=== PATIENT | female | born 1985 | race Caucasian/White ===

== ENCOUNTER 2019-05-17 15:44 | Inpatient (IN) | payer OTHER, SELFPAY ==
[2019-05-17] MEDS ORDERED: KETOROLAC 30 MG/ML INJ ONE (15:58)
[2019-05-17] MEDS ORDERED: FENTANYL CITR 100 MCG/2 ML ONE (16:03)
[2019-05-17 16:07] LABS: Absolute Lymphocytes (CBC) 0.6 K/uL (0.7-4.9); Basophils % 0.2 % (0-1.3); Hematocrit 38.5 % (36.0-45.0); Lymphocytes % 6.2 % (15.3-44.8); MPV 8.4 fL (7.6-11.3); RBC Red Blood Cell Count 4.38 M/uL (3.86-4.86)
[2019-05-17 16:18] LABS: Protime INR 1.05
[2019-05-17 16:30] LABS: ALT/SGPT 23 U/L (12-78); AST/SGOT 11 U/L (15-37); Albumin 3.8 g/dL (3.4-5.0); Alkaline Phosphatase 82 U/L (45-117); BUN Blood Urea Nitrogen 7 mg/dL (7-18); Bicarbonate 28 mmol/L (21-32); Bilirubin Direct 0.2 mg/dL (0-0.2); Bilirubin Total 0.8 mg/dL (0.2-1.0); Glucose Level 151 mg/dL (74-106); Magnesium 2.3 mg/dL (1.8-2.4); NT PRO-BNP 46 pg/mL (<125); Potassium 3.5 mmol/L (3.5-5.1); Protein, Total 7.8 g/dL (6.4-8.2); Sodium Level 140 mmol/L (136-145); Troponin (Emerg Dept Use Only) < 0.02 ng/mL (0.0-0.045)
--- NOTE | 2019-05-17 16:35 | RAD REPORT ---
EXAM DESCRIPTION: RAD - Chest Single View - 05/17/2019 4:15 pm CLINICAL HISTORY: Stabbing pain left side of the chest COMPARISON: None. TECHNIQUE: AP portable chest image was obtained 1603 hours . FINDINGS: Left hemidiaphragm elevation is present. Left hemithorax volume reduction is present. Opac ification at the left base is favored to be atelectasis. Finding is relatively minimal. Pneumonia is possible but would not likely give this type of pain presentation. Heart and vasculature are normal. No measurable pleural effusion and no pneumothorax. No acute bony abnormality seen. No acute aortic f indings suspected. IMPRESSION: Minimal stranding in the left base is favored to be atelectasis rather than early pneumo buddy. No pneumothorax or other abnormality to explain stabbing left-side chest pain.
[2019-05-17 17:46] LABS: Blood Morphology Comment NOT SEEN (NOT SEEN); Platelet Estimate ADEQ; Urine White Blood Cell Casts OK
--- NOTE | 2019-05-17 17:48 | RAD REPORT ---
EXAM DESCRIPTION: CT - Chest For Pe Angio - 05/17/2019 5:11 pm CLINICAL HISTORY: Stabbing type pain to the left chest COMPARISON: Chest films same date TECHNIQUE: Dynamically enhanced 3 mm thick images of the chest were obtained during administration o f approximately 150mL Isovue 370 IV contrast. Coronal and oblique MIP reconstruction images were gene rated and reviewed. Exam utilizes a protocol to evaluate the pulmonary arterial tree. All CT scans are performed using dose optimization technique as appropriate and may include automated exposure control or mA/KV adjustment according to patient size. FINDINGS: Pulmonary arterial tree opacification is not optimal but is adequate for diagnostic purpos es. Segmental and subsegmental branch pulmonary emboli are present in the posterior lower left lobe. No e mbolic disease in the left side main pulmonary artery. No left upper lobe pulmonary emboli confirmed. No right-sided pulmonary emboli confirmed. Small emboli could be present. There is suboptimal opacif ication and motion present. The aorta as imaged shows no acute or suspicious finding. No pericardial thickening or effusion. Alveolar opacification is present in the posterior lower left lobe abutting the diaphragm. In the set ting of pulmonary emboli this could be pulmonary hemorrhage. Concurrent pneumonia is possible as well . There is some component of atelectasis present. Minimal left pleural effusion is present. No pneumo thorax or pleural based mass. No mediastinal or hilar suspicious masses. No chest wall masses or abnormal axillary lymphadenopathy. IMPRESSION: Multiple left lower lobe segmental and subsegmental branch pulmonary emboli. Posterior left lung base parenchymal opacification can be pulmonary hemorrhage given the pulmonary em boli present. Pneumonia is possible. Patient has a small left pleural effusion. Additional pulmonary emboli could be present an obscured by the motion and suboptimal pulmonary arter ial tree opacification. Any additional emboli would not alter treatment options.
[2019-05-17] MEDS ORDERED: ENOXAPARIN 80 MG/0.8 ML SQ ONE (18:20)
--- NOTE | 2019-05-17 18:47 | ER ---
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 Transition of care: patient was not received from another setting of care. Onset of symptoms was May 17, 2019. Risk Assessment: Do you want to hurt yourself or someone else? Patient reports no desire to harm self or others. Initial Sepsis Screen: Does the patient meet any 2 criteria? No. Patient's initial sepsis screen is negative. Does the patient have a suspected source of infection? No. Patient's initial sepsis screen is negative. Care prior to arrival: None. 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 - Social history:: Smoking status: Patient uses tobacco products, smokes one-half pack cigarettes per day. - Ebola Screening: : No symptoms or risks identified at this time. Screenin:49 Abuse screen: Denies threats or abuse. Nutritional screening: No deficits noted. la1 Tuberculosis screening: No symptoms or risk factors identified. Fall Risk None identified. Assessment: 15:48 General: Appears uncomfortable, Behavior is cooperative, agitated. Pain: Complains of la1 pain in chest under left breast Pain does not radiate. Quality of pain is described as sharp, Pain began 2-3 days ago. Neuro: Level of Consciousness is awake, alert, obeys commands, Oriented to person, place, time, situation. Cardiovascular: Heart tones S1 S2 present Capillary refill < 3 seconds Patient's skin is warm and dry. Rhythm is sinus tachycardia. Respiratory: Airway is patent Respiratory effort is even, unlabored, Respiratory pattern is regular, symmetrical, Breath sounds are clear bilaterally. GI: No signs and/or symptoms were reported involving the gastrointestinal system. : No signs and/or symptoms were reported regarding the genitourinary system. 16:51 Reassessment: Patient appears in no apparent distress at this time. No changes from la1 previously documented assessment. Patient and/or family updated on plan of care and expected duration. Pain level reassessed. Patient is alert, oriented x 3, equal unlabored respirations, skin warm/dry/pink. 17:44 Reassessment: Patient appears in no apparent distress at this time. No changes from la1 previously documented assessment. Patient and/or family updated on plan of care and expected duration. Pain level reassessed. Patient is alert, oriented x 3, equal unlabored respirations, skin warm/dry/pink. 18:07 Reassessment: Patient appears in no apparent distress at this time. No changes from la1 previously documented assessment. Patient and/or family updated on plan of care and expected duration. Pain level reassessed. Patient is alert, oriented x 3, equal unlabored respirations, skin warm/dry/pink. Vital Signs: 15:46 BP 121 / 64; Pulse 97; Resp 20; Temp 99.8; Pulse Ox 98% on R/A; Weight 83.91 kg; Height la1 5 ft. 1 in. (154.94 cm); 17:43 BP 115 / 64; Pulse 85; Resp 16; Pulse Ox 98% on R/A; la1 18:07 BP 112 / 66; Pulse 88; Resp 18; Pulse Ox 98% on R/A; la1 18:42 BP 117 / 75; Pulse 85; Resp 16; Pulse Ox 98% on R/A; la1 20:48 BP 116 / 74; Pulse 86; Resp 16; Pulse Ox 98% on R/A; la1 21:33 BP 114 / 65; Pulse 85; Resp 16; Temp 99.8; Pulse Ox 98% on R/A; la1 15:46 Body Mass Index 34.96 (83.91 kg, 154.94 cm) la1 ED Course: 15:45 Patient arrived in ED. la1 15:45 German Swenson PA is PHCP. cp 15:45 Fausto Clark MD is Attending Physician. cp 15:47 Arm band placed on left wrist. la1 15:48 Triage completed. la1 15:49 Bed in low position. Call light in reach. Side rails up X 1. chain offbearer on. Pulse la1 ox on. NIBP on. 15:55 EKG done, by medical equipment repair technician. reviewed by German GUEVARA. sm3 16:08 Ken Agrawal, RN is Primary Nurse. la1 16:15 XRAY Chest (1 view) In Process Unspecified. EDMS 16:50 No provider procedures requiring assistance completed. Inserted saline lock: 22 gauge la1 in right antecubital area, using aseptic technique. Blood collected. Patient maintains SpO2 saturation greater than 95% on room air. 17:[address] via stretcher. nj 17:12 CT Chest For PE Angio In Process Unspecified. EDMS 18:35 US Extremity Venous W Compression Juanpablo In Process Unspecified. EDMS 18:45 Kriss Terrell MD is Hospitalizing Provider. cp 22:14 Patient admitted, IV remains in place. la1 Administered Medications: 16:09 Drug: fentaNYL (PF) 25 mcg Route: IVP; Site: right antecubital; la1 16:56 Follow up: Response: No adverse reaction; Pain is decreased la1 17:51 CANCELLED (Physician Discretion): TORadol 30 mg IVP once cp 17:55 Not Given (Physician Discretion): Lovenox 1 mg/kg Sub-Q once cp 18:17 Drug: fentaNYL (PF) 25 mcg Route: IVP; Site: right antecubital; la1 21:35 Follow up: Response: No adverse reaction; Pain is decreased la1 18:41 Drug: Lovenox 1 mg/kg Route: Sub-Q; Site: left lower abdomen; la1 21:35 Follow up: Response: No adverse reaction la1 20:46 Drug: morphine 2 mg Route: IVP; Site: right antecubital; la1 21:34 Follow up: Response: No adverse reaction; Pain is decreased la1 Outcome: 18:46 Decision to Hospitalize by Provider. cp 22:14 Admitted to Tele accompanied by tech, via stretcher. la1 22:14 Condition: stable 22:14 Instructed on the need for admit. 22:14 Patient left the ED. la1 Signatures: Dispatcher [employer] EDMS Ken Agrawal RN RN la1 German Swenson PA PA cp Jordan, Nathan nj Montes, Shakira 3
--- NOTE | 2019-05-17 18:47 | EDPHYS ---
Physician Documentation [facility] Name: Sharri Humphries Age: 33 yrs Sex: Female : 1985 Arrival Date: 05/17/2019 Time: 15:45 Bed 27 Private MD: ED Physician Fausto Clark HPI: 05/17 16:00 This 33 yrs old Female presents to ER via EMS with complaints of Chest Wall cp Pain. 16:00 The patient or guardian reports chest pain that is located primarily in the anterior cp chest wall, left. 16:00 Onset: The symptoms/episode began/occurred 2-3 days ago. cp 16:00 The pain radiates to left back. Associated signs and symptoms: Pertinent positives: cp shortness of breath, Pertinent negatives: abdominal pain, constipation, diarrhea, dysuria, fever, vomiting, wheezing. Modifying factors: the patient symptoms are aggravated by deep inspiration. Associated signs and symptoms: Pertinent negatives: abdominal pain, cough, diaphoresis, lower extremity pain, lower extremity swelling, syncope, fever. The chest pain is described as sharp, stabbing. Duration: The patient or guardian reports multiple episodes, that wax and wane. 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 - Social history:: Smoking status: Patient uses tobacco products, smokes one-half pack cigarettes per day. - Ebola Screening: : No symptoms or risks identified at this time. ROS: 16:05 Constitutional: Negative for body aches, chills, fever, poor PO intake. cp 16:05 Eyes: Negative for injury, pain, redness, and discharge. cp 16:05 ENT: Negative for drainage from ear(s), ear pain, sore throat, difficulty swallowing, difficulty handling secretions. 16:05 Cardiovascular: Positive for chest pain, Negative for edema, palpitations. 16:05 Respiratory: Positive for shortness of breath, Negative for cough, hemoptysis, wheezing. 16:05 Abdomen/GI: Negative for abdominal pain, nausea, vomiting, and diarrhea, black/tarry stool, rectal bleeding. 16:05 Back: Positive for radiated pain, Negative for injury or acute deformity, decreased range of motion. 16:05 : Negative for urinary symptoms. 16:05 Skin: Negative for cellulitis, rash. 16:05 Neuro: Negative for altered mental status, headache, weakness. 16:05 All other systems are negative. Exam: 15:55 ECG was reviewed by the Attending Physician. cp 16:15 Constitutional: The patient appears alert, awake, non-diaphoretic, non-toxic, well cp developed, well nourished, in obvious pain, uncomfortable. 16:15 Head/Face: Normocephalic, atraumatic. Eyes: Pupils equal round and reactive to light, cp extra-ocular motions intact. Lids and lashes normal. Conjunctiva and sclera are non-icteric and not injected. Cornea within normal limits. Periorbital areas with no swelling, redness, or edema. ENT: Nares patent. No nasal discharge, no septal abnormalities noted. Tympanic membranes are normal and external auditory canals are clear. Oropharynx with no redness, swelling, or masses, exudates, or evidence of obstruction, uvula midline. Mucous membranes moist. Neck: Trachea midline, no thyromegaly or masses palpated, and no cervical lymphadenopathy. Supple, full range of motion without nuchal rigidity, or vertebral point tenderness. No Meningismus. Chest/axilla: Normal chest wall appearance and motion. Nontender with no deformity. No lesions are appreciated. 16:15 Cardiovascular: Rate: normal, Rhythm: regular, Heart sounds: murmur, not appreciated, Edema: is not appreciated, JVD: is not appreciated. 16:15 Respiratory: the patient does not display signs of respiratory distress, Respirations: normal, no use of accessory muscles, no retractions, no splinting, no tachypnea, labored breathing, is not present, Breath sounds: are clear throughout. 16:15 Abdomen/GI: Inspection: abdomen appears normal, Palpation: abdomen is soft and non-tender, in all quadrants. 16:15 Back: pain, is absent, ROM is normal. 16:15 Skin: cellulitis, is not appreciated, no rash present. 16:15 Neuro: Orientation: to person, place \T\ time. Mentation: is normal, Cerebellar function: is grossly normal, Motor: moves all fours, strength is normal, Sensation: is normal. Vital Signs: 15:46 BP 121 / 64; Pulse 97; Resp 20; Temp 99.8; Pulse Ox 98% on R/A; Weight 83.91 kg; Height la1 5 ft. 1 in. (154.94 cm); 17:43 BP 115 / 64; Pulse 85; Resp 16; Pulse Ox 98% on R/A; la1 18:07 BP 112 / 66; Pulse 88; Resp 18; Pulse Ox 98% on R/A; la1 18:42 BP 117 / 75; Pulse 85; Resp 16; Pulse Ox 98% on R/A; la1 20:48 BP 116 / 74; Pulse 86; Resp 16; Pulse Ox 98% on R/A; la1 21:33 BP 114 / 65; Pulse 85; Resp 16; Temp 99.8; Pulse Ox 98% on R/A; la1 15:46 Body Mass Index 34.96 (83.91 kg, 154.94 cm) la1 MDM: 15:52 Patient medically screened. cp 16:00 Differential diagnosis: acute pericarditis, anxiety, chest wall pain, pneumonia, cp pneumothorax, pulmonary embolus. 18:00 Data reviewed: vital signs, nurses notes, lab test result(s), EKG, radiologic studies, cp CT scan, plain films. 18:00 Test interpretation: by ED physician or midlevel provider: plain radiologic studies. cp Response to treatment: the patient's symptoms have markedly improved after treatment, and as a result, I will admit patient. 18:17 Physician consultation: Bandar Marie MD was called at 18:17, was contacted at 18:17, cp regarding admission, to the telemetry unit. patient's condition, would like admission per Dr. Kriss Terrell MD would like medications started, Lovenox 1mg/kg bid. 05/17 15:54 Order name: Basic Metabolic Panel; Complete Time: 16:32 cp 05/17 15:54 Order name: CBC with Diff; Complete Time: 17:50 cp 05/17 15:54 Order name: LFT's; Complete Time: 16:32 cp 05/17 15:54 Order name: Magnesium; Complete Time: 16:32 cp 05/17 15:54 Order name: NT PRO-BNP; Complete Time: 16:32 cp 05/17 15:54 Order name: PT-INR; Complete Time: 16:32 cp 05/17 15:54 Order name: Troponin (emerg Dept Use Only); Complete Time: 16:32 cp 05/17 15:54 Order name: D-Dimer; Complete Time: 16:32 cp 05/17 17:46 Order name: CBC Smear Scan; Complete Time: 17:50 EDMS 05/17 20:33 Order name: Vitamin B12 Level EDMS 05/17 20:33 Order name: Folic Acid, (Folate) EDMS 05/17 20:33 Order name: Comprehensive Metabolic Panel EDMS 05/17 20:34 Order name: Comprehensive Metabolic Panel EDMS 05/17 20:34 Order name: Troponin I EDMS 05/17 15:54 Order name: XRAY Chest (1 view); Complete Time: 17:50 cp 05/17 16:32 Order name: CT Chest For PE Angio; Complete Time: 17:50 cp 05/17 20:34 Order name: Troponin I EDMS 05/17 20:35 Order name: Anti-Thrombin III Activity EDMS 05/17 20:35 Order name: Cardiolipin Antibodies G,M EDMS 05/17 20:35 Order name: C-ANCA Anti-Proteinase 3 EDMS 05/17 20:35 Order name: Factor V Leiden Mutation EDMS 05/17 20:35 Order name: Homocysteine EDMS 05/17 20:35 Order name: Miscellaneous Test Lab EDMS 05/17 20:35 Order name: P-ANCA Anti-Myeloperoxidase Ab EDMS 05/17 20:35 Order name: PROTHROMBIN GENE ANALYSIS (F2) EDMS 05/17 20:35 Order name: Protein C Antigen EDMS 05/17 20:35 Order name: Protein S (Total EDMS 05/17 20:35 Order name: RPR EDMS 05/17 20:35 Order name: Protein Electo w/M Otilio Serum EDMS 05/17 20:35 Order name: Vitamin D, 25 ([place]), TOTAL EDMS 05/17 15:54 Order name: EKG; Complete Time: 15:55 cp 05/17 15:54 Order name: Cardiac monitoring; Complete Time: 16:12 cp 05/17 15:54 Order name: EKG - Nurse/Tech; Complete Time: 16:12 cp 05/17 15:54 Order name: IV Saline Lock; Complete Time: 16:12 cp 05/17 15:54 Order name: Labs collected and sent; Complete Time: 16:09 cp 05/17 15:54 Order name: O2 Per Protocol; Complete Time: 16:09 cp 05/17 15:54 Order name: O2 Sat Monitoring; Complete Time: 16:10 cp 05/17 18:05 Order name: US Extremity Venous W Compression Juanpablo la1 05/17 18:06 Order name: Misc. Order: bed rest; Complete Time: 18:08 cp 05/17 20:35 Order name: CONS Pharmacy Consult EDMS 05/17 20:35 Order name: CONS Physician Consult EDMS 05/17 20:35 Order name: EKG Electrocardiogram EDMS 05/17 20:35 Order name: EKG Electrocardiogram EDMS EC:55 Rate is 93 beats/min. Rhythm is regular. FL interval is normal. QRS interval is normal. cp QT interval is normal. Interpreted by me. Reviewed by me. Administered Medications: 16:09 Drug: fentaNYL (PF) 25 mcg Route: IVP; Site: right antecubital; la1 16:56 Follow up: Response: No adverse reaction; Pain is decreased la1 17:51 CANCELLED (Physician Discretion): TORadol 30 mg IVP once cp 17:55 Not Given (Physician Discretion): Lovenox 1 mg/kg Sub-Q once cp 18:17 Drug: fentaNYL (PF) 25 mcg Route: IVP; Site: right antecubital; la1 21:35 Follow up: Response: No adverse reaction; Pain is decreased la1 18:41 Drug: Lovenox 1 mg/kg Route: Sub-Q; Site: left lower abdomen; la1 21:35 Follow up: Response: No adverse reaction la1 20:46 Drug: morphine 2 mg Route: IVP; Site: right antecubital; la1 21:34 Follow up: Response: No adverse reaction; Pain is decreased la1 Disposition: 05/17/19 18:46 Hospitalization ordered by Kriss Terrell for Inpatient Admission. Preliminary diagnosis is Other pulmonary embolism without acute cor pulmonale. - Bed requested for Telemetry/MedSurg (Inpatient). - Status is Inpatient Admission. la1 - Condition is Stable. - Problem is new. - Symptoms have improved. UTI on Admission? No Addendum: 05/20/2019 09:06 Co-signature as Attending Physician, Fausto Clark MD I agree with the assessment and k dr plan of care. Signatures: Dispatcher [employer] [facility] Fausto Clark MD MD [facility] Ken Agrawal RN RN la1 German Swenson PA PA Yohana Parker cm6 Corrections: (The following items were deleted from the chart) 05/17 17:51 17:50 TORadol 30 mg IVP once ordered. cp cp 18:10 17:55 Lower Extremity Arterial Bilat+US.RAD.BRZ ordered. [facility] 21:21 18:46 Hospitalization Ordered by Kriss Terrell MD for Inpatient Admission. Preliminary cm6 diagnosis is Other pulmonary embolism without acute cor pulmonale. Bed requested for Telemetry/MedSurg (Inpatient). Status is Inpatient Admission. Condition is Stable. Problem is new. Symptoms have improved. UTI on Admission? No. cp 21:43 15:55 Urine Dipstick-Ancillary ordered. cp la1 21:44 15:55 Urine Test ordered. cp la1 22:14 21:21 05/17/2019 18:46 Hospitalization Ordered by Kriss Terrell MD for Inpatient la1 Admission. Preliminary diagnosis is Other pulmonary embolism without acute cor pulmonale. Bed requested for Telemetry/MedSurg (Inpatient). Status is Inpatient Admission. Condition is Stable. Problem is new. Symptoms have improved. UTI on Admission? No. cm6
--- NOTE | 2019-05-17 19:29 | RAD REPORT ---
EXAM DESCRIPTION: US - Extrem Venous W Compress Juanpablo - 05/17/2019 6:34 pm CLINICAL HISTORY: Leg pain and swelling COMPARISON: None. TECHNIQUE: Real-time sonographic evaluation of the bilateral lower extremity common femoral, superfi cial femoral, popliteal and posterior tibial veins was performed. FINDINGS: Normal compressibility, flow augmentation, phasic flow and spontaneous flow are identified in the left and right lower extremity common femoral, superficial femoral, popliteal and posterior t ibial veins. No intraluminal filling defects seen. IMPRESSION: No DVT in either lower extremity.
[2019-05-17] MEDS ORDERED: MORPHINE 2 MG/ML SYR ONE (20:31)
[2019-05-17] MEDS ORDERED: FENTANYL CITR 100 MCG/2 ML IV ONE (22:25)
[2019-05-17] MEDS: NA CHLORIDE 0.9% 1,000 ML IV SCH (22:42)
[2019-05-17] MEDS: ONDANSETRON 4 MG/2 ML VIAL IV PRN (22:49)
[2019-05-18] MEDS: MORPHINE 2 MG/ML SYR IV PRN ×2 (00:07→06:36)
[2019-05-18] MEDS ORDERED: PROMETHAZINE 25 MG/ML VIAL IV ONE (00:42)
[2019-05-18 02:00] LABS: Urine Appearance CLOUDY; Urine Bilirubin NEGATIVE (NEG); Urine Blood TRACE (NEG); Urine Color DK YELLOW; Urine Glucose NEGATIVE (NEG); Urine Protein TRACE (NEG); Urine Specific Gravity >=1.030 (1.005-1.030)
[2019-05-18 02:20] LABS: Urine Microscopic Reflex ORDER UMIC
[2019-05-18] MEDS ORDERED: LORazepam 2 MG/ML VIAL IV ONE (02:40)
[2019-05-18 02:42] LABS: Folic Acid, (Folate) 14.1 ng/mL (3.1-17.5)
[2019-05-18] MEDS ORDERED: MORPHINE 2 MG/ML SYR IV ONE (02:53)
[2019-05-18] MEDS: ONDANSETRON 4 MG/2 ML VIAL IV PRN ×3 (02:54→17:52)
[2019-05-18 02:58] LABS: Urine Bacteria <20 /HPF (<20); Urine RBC <5 /HPF (NONE SEEN)
[2019-05-18 02:59] LABS: Urine Culture Reflex Order REFLEXED; Urine Trichomonas PRESENT (NONE SEEN)
[2019-05-18] MEDS: ACETAMINOPHEN 500 MG TAB PO PRN ×2 (04:25→17:02)
[2019-05-18 06:10] LABS: Absolute Lymphocytes (CBC) 0.6 K/uL (0.7-4.9); Basophils % 0.2 % (0-1.3); Hematocrit 33.4 % (36.0-45.0); Lymphocytes % 5.4 % (15.3-44.8); MPV 8.4 fL (7.6-11.3); RBC Red Blood Cell Count 3.81 M/uL (3.86-4.86)
[2019-05-18 06:17] LABS: Protime INR 1.17
[2019-05-18 06:23] LABS: Bilirubin Total 0.9 mg/dL (0.2-1.0); Potassium 3.4 mmol/L (3.5-5.1); Protein, Total 6.8 g/dL (6.4-8.2)
[2019-05-18] MEDS ORDERED: HEPARIN 10,000 UNIT/10 ML VIAL IV ONE (06:40)
--- NOTE | 2019-05-18 06:42 | P.HP ---
Certification for Inpatient Patient admitted to: Inpatient With expected LOS: >2 Midnights Patient will require the following post-hospital care: None Practitioner: I am a practitioner with admitting privileges, knowledge of patient current condition, hospital course, and medical plan of care. Services: Services provided to patient in accordance with Admission requirements found in Title 42 Section 412.3 of the Code of Federal Regulations Patient History Date of Service: 05/17/19 Reason for admission: Pulmonary embolism History of Present Illness: Patient is a 33-year-old female came to the hospital with chest discomfort. Pain was mainly in the sternal region. Patient has history of tobacco use and also is taking control pills. She states the pain is been going on for the last 2-3 days and was getting progressively worse so she came into the ER. In the emergency room her workup revealed multiple pulmonary embolisms. The ER physician spoke with her statistics manager and the decision was made to admit patient to our hospital for further workup. Patient is having some pain on deep inspiration. Will try to generation manager with pain medication and start her on anti coagulation. Patient is given Lovenox in the ER. Will go ahead and give heparin drip in a.m.. Allergies No Known Allergies Allergy (Verified 05/17/19 22:25) Home Medications: NK [No Home Meds] 05/17/19 - Past Medical/Surgical History Has patient received pneumonia vaccine in the past: No Diabetic: No -: Tobacco abuse -: tubal ligation - Social History Smoking Status: Current every day smoker Alcohol use: No CD- Drugs: No Caffeine use: Yes Place of Residence: Home Review of Systems 10-point ROS is otherwise unremarkable Physical Examination - Vital Signs Temperature: 99.0 F Blood Pressure: 140/72 Pulse: 106 Respirations: 30 Pulse Ox (%): 98 - Physical Exam General: Alert, In no apparent distress HEENT: Atraumatic, PERRLA, Mucous membr. moist/pink, EOMI, Sclerae nonicteric Neck: Supple, 2+ carotid pulse no bruit, No LAD, Without JVD or thyroid abnormality Respiratory: Clear to auscultation bilaterally, Normal air movement Cardiovascular: Regular rate/rhythm, Normal S1 S2 Gastrointestinal: Normal bowel sounds, No tenderness Musculoskeletal: No tenderness Integumentary: No rashes Neurological: Normal gait, Normal speech, Normal strength at 5/5 x4 extr, Normal tone, Normal affect Lymphatics: No axilla or inguinal lymphadenopathy - Studies Laboratory Data (last 24 hrs) 05/17/19 15:55: PT 12.4, INR 1.05 05/17/19 15:55: WBC 9.2, Hgb 13.2, Hct 38.5, Plt Count 275 05/17/19 15:55: Sodium 140, Potassium 3.5, BUN 7, Creatinine 0.94, Glucose 151 H , Magnesium 2.3, Total Bilirubin 0.8, AST 11 L, ALT 23, Alkaline Phosphatase 82 Assessment & Plan - Problems (Diagnosis) (1) Adverse reaction to control pills Current Visit: Yes Status: Acute (2) Tobacco use Current Visit: Yes Status: Acute (3) Pulmonary embolism Current Visit: Yes Status: Acute Qualifiers: Pulmonary embolism type: other Chronicity: acute Acute cor pulmonale presence: without acute cor pulmonale Qualified Code(s): I26.99 - Other pulmonary embolism without acute cor pulmonale (4) Trichomoniasis Current Visit: Yes Status: Acute - Plan Plan: -anti coagulation -Doppler of lower extremity -hypercoagulable workup -echocardiogram -monitor oxygenation closely; O2 per protocol -GI prophylaxis Discharge Plan: Home Plan to discharge in: Greater than 2 days - Advance Directives Does patient have a Living Will: No Does patient have a Durable POA for Healthcare: No - Code Status/Comfort Care Code Status Assessed: Yes Code Status: Full Code Critical Care: No Time Spent Managing PTS Care (In Minutes): 45
--- NOTE | 2019-05-18 06:45 | EKG ---
Test Date: 2019-05-18 Test Time: 06:16:31 Tool Grinder: RT-O MEASUREMENT RESULTS: Intervals: Rate: 96 CA: 154 QRSD: 84 QT: 330 QTc: 416 [place]: P: 52 CA: 154 QRS: 28 T: 59 INTERPRETIVE STATEMENTS: Normal sinus rhythm Cannot rule out Anterior infarct, age undetermined Abnormal ECG Compared to ECG 05/17/2019 15:47:27 No significant changes Electronically Signed On 05-18-19 06:45:39 CDT by Saulo Armenta
--- NOTE | 2019-05-18 06:48 | EKG ---
Test Date: 2019-05-17 Test Time: 15:47:27 Anodizing Line Operator: ALEX MEASUREMENT RESULTS: Intervals: Rate: 93 VT: 148 QRSD: 78 QT: 354 QTc: 440 [place]: P: 73 VT: 148 QRS: 61 T: 57 INTERPRETIVE STATEMENTS: Normal sinus rhythm Cannot rule out Anterior infarct, age undetermined Abnormal ECG No previous ECG available for comparison Electronically Signed On 05-18-19 06:46:09 CDT by Saulo Armenta
[2019-05-18] MEDS ORDERED: HEPARIN/D5W 25,000 UNIT/500 ML BAG IV SCH (07:00)
[2019-05-18 08:38] LABS: Blood Morphology Comment NOT SEEN (NOT SEEN); Platelet Estimate ADEQ
[2019-05-18] MEDS ORDERED: FENTANYL CITR 100 MCG/2 ML IV ONE (08:39)
[2019-05-18] MEDS: NA CHLORIDE 0.9% 1,000 ML IV SCH ×3 (09:05→21:22)
[2019-05-18] MEDS ORDERED: HYDROCODONE/APAP 5/325 MG TAB PO PRN (09:25)
--- NOTE | 2019-05-18 09:29 | P.CNS ---
Date of Consult: 05/18/19 Chief Complaint: Pulmonary embolism History of Present Illness: Patient is 33 years of age admitted with sudden onset of pleuritic chest pain shortness of breath diagnosed to have bilateral pulmonary emboli currently patient is significant discomfort from left-sided lower chest pain describes as pleuritic for medical problems apart from a history of using control pills no prior history of thromboembolism patient is an active smoker Allergies No Known Allergies Allergy (Verified 05/17/19 22:25) Home Medications: NK [No Home Meds] 05/17/19 - Past Medical/Surgical History Diabetic: No -: Tobacco abuse -: tubal ligation - Social History Smoking Status: Current every day smoker Alcohol use: No CD- Drugs: No Caffeine use: Yes Place of Residence: Home Review of Systems Cardiovascular: Chest Pain, As per HPI Physical Examination Temp Pulse Resp BP Pulse Ox 99.1 F 93 H 20 115/59 L 95 05/18/19 08:00 05/18/19 08:00 05/18/19 08:00 05/18/19 08:00 05/18/19 08:00 General: Alert, Moderate distress Respiratory: Clear to auscultation bilaterally, Diminished (Diminished on the left side) Cardiovascular: No edema, Regular rate/rhythm, Normal S1 S2 Laboratory Data (last 24 hrs) 05/17/19 15:55: PT 12.4, INR 1.05 05/17/19 15:55: WBC 9.2, Hgb 13.2, Hct 38.5, Plt Count 275 05/17/19 15:55: Sodium 140, Potassium 3.5, BUN 7, Creatinine 0.94, Glucose 151 H , Magnesium 2.3, Total Bilirubin 0.8, AST 11 L, ALT 23, Alkaline Phosphatase 82 - Problems (1) Pulmonary embolism Current Visit: Yes Status: Acute Plan: Patient is 33 years of age admitted with an acute pulmonary embolism and control wing of significant amount of pleuritic chest pain oxygenation stable blood pressure also stable change to Lovenox I have added some Vicodin and she also has some pain relief chest x-rays patient denies any hemoptysis labs reviewed Qualifiers: Acute cor pulmonale presence: without acute cor pulmonale
--- NOTE | 2019-05-18 10:03 | RAD REPORT ---
EXAM DESCRIPTION: [place] Single View05/18/2019 9:51 am CLINICAL HISTORY: Chest pain COMPARISON: May 17, 2019 FINDINGS: Mild worsening in the left basilar consolidation. The right lung appears clear The heart is normal size IMPRESSION: Mild worsening in the left basilar consolidation which could represent a pulmonary inf arct or pneumonia
[2019-05-18] MEDS: METRONIDAZOLE 500mg IVPB 500 MG/100 ML BAG IV SCH ×2 (10:41→16:12)
[2019-05-18] MEDS: TRAMADOL HCL 50 MG TAB PO PRN ×2 (11:25→19:39)
--- NOTE | 2019-05-18 11:55 | P.PN ---
Subjective Date of Service: 05/18/19 Chief Complaint: Pulmonary embolism Patient seen and examined at bedside with RN. Chart reviewed. Case discussed with pulmonology at this time. This morning patient appears to be extremely sleepy due to pain medication. Pain medications were stopped and only oral pain medications were placed on the chart. Review of Systems 10-point ROS is otherwise unremarkable Physical Examination - Vital Signs Temperature: 99.1 F Blood Pressure: 115/59 Pulse: 93 Respirations: 20 Pulse Ox (%): 95 - Physical Exam General: Alert, In no apparent distress HEENT: Atraumatic, PERRLA, EOMI Neck: Supple, JVD not distended Respiratory: Clear to auscultation bilaterally, Normal air movement Cardiovascular: Regular rate/rhythm, Normal S1 S2 Gastrointestinal: Normal bowel sounds, No tenderness Musculoskeletal: No tenderness Integumentary: No rashes Neurological: Normal speech, Normal tone, Normal affect Lymphatics: No axilla or inguinal lymphadenopathy - Studies Laboratory Data (last 24 hrs) 05/17/19 15:55: PT 12.4, INR 1.05 05/17/19 15:55: WBC 9.2, Hgb 13.2, Hct 38.5, Plt Count 275 05/17/19 15:55: Sodium 140, Potassium 3.5, BUN 7, Creatinine 0.94, Glucose 151 H , Magnesium 2.3, Total Bilirubin 0.8, AST 11 L, ALT 23, Alkaline Phosphatase 82 Medications List Reviewed: Yes Assessment And Plan - Current Problems (Diagnosis) (1) Pulmonary embolism Current Visit: Yes Status: Acute Plan: Acute pulmonary embolism noted on the CT scan -pulmonology is consulted. Appreciated recommendations -patient was initially started on heparin now stopped and started on Lovenox here in the hospital -repeat chest x-ray is pending at this time Qualifiers: Pulmonary embolism type: other Chronicity: acute Acute cor pulmonale presence: without acute cor pulmonale Qualified Code(s): I26.99 - Other pulmonary embolism without acute cor pulmonale (2) Trichomoniasis Current Visit: Yes Status: Acute Plan: Patient is positive for trichomoniasis will be treated with metronidazole here in the hospital Discharge Plan: Home Plan to discharge in: Greater than 2 days - Code Status/Comfort Care Code Status Assessed: Yes Critical Care: No
[2019-05-18] MEDS ORDERED: NA CHLORIDE 0.9% 500 ML IV ONE (17:09)
[2019-05-18] MEDS: PIPER/TAZO/NS 3.375gm 3.375 GM/100 ML BAG IV SCH (17:50)
[2019-05-18] MEDS: ENOXAPARIN 80 MG/0.8 ML SQ SCH (20:34)
[2019-05-18] MEDS ORDERED: HYDROMORPHONE HCL 1 MG/ML INJ IV ONE (21:47)
[2019-05-19] MEDS: METRONIDAZOLE 500mg IVPB 500 MG/100 ML BAG IV SCH ×2 (01:09→08:25)
[2019-05-19] MEDS: PIPER/TAZO/NS 3.375gm 3.375 GM/100 ML BAG IV SCH ×2 (01:40→08:25)
[2019-05-19] MEDS: NA CHLORIDE 0.9% 1,000 ML IV SCH (05:26)
[2019-05-19] MEDS: TRAMADOL HCL 50 MG TAB PO PRN ×2 (05:27→13:40)
[2019-05-19] MEDS: ENOXAPARIN 80 MG/0.8 ML SQ SCH ×2 (08:25→20:30)
[2019-05-19] MEDS: ACETAMINOPHEN 500 MG TAB PO PRN (09:49)
[2019-05-19] MEDS ORDERED: HYDROCODONE/APAP 5/325 MG TAB PO ONE (11:06)
[2019-05-19] MEDS: NICOTINE 14 MG/PAT TD SCH (11:54)
[2019-05-19] MEDS: CLINDAMYCIN HCL 150 MG CAP PO SCH ×3 (11:54→23:02)
--- NOTE | 2019-05-19 12:36 | P.PN ---
Subjective Date of Service: 05/19/19 Chief Complaint: Pulmonary embolism Patient seen and examined at bedside with RN. Chart reviewed. Case discussed with pulmonology at this time. This morning patient appears to be anxious and Does appear to have shortness of breath as well. Educated extensively on the need to use incentive spirometer and sitting at the edge of the bed. Review of Systems 10-point ROS is otherwise unremarkable Physical Examination - Vital Signs Temperature: 97.8 F Blood Pressure: 120/60 Pulse: 96 Respirations: 28 Pulse Ox (%): 97 - Physical Exam General: Alert, In no apparent distress HEENT: Atraumatic, PERRLA, EOMI Neck: Supple, JVD not distended Respiratory: Normal air movement, Rhonchi/gurgles Cardiovascular: Regular rate/rhythm, Normal S1 S2 Gastrointestinal: Normal bowel sounds, No tenderness Musculoskeletal: No tenderness Integumentary: No rashes Neurological: Normal speech, Normal tone, Normal affect Lymphatics: No axilla or inguinal lymphadenopathy - Studies Medications List Reviewed: Yes Assessment And Plan - Current Problems (Diagnosis) (1) Pulmonary embolism Current Visit: Yes Status: Acute Plan: Acute pulmonary embolism noted on the CT scan with possible pneumonitis -pulmonology is consulted. Appreciated recommendations -patient now on Lovenox here in the hospital -continues to have marked amount of pain -incentive spirometer at this time -also started on clindamycin at this time (2) Trichomoniasis Current Visit: Yes Status: Acute Plan: Patient is positive for trichomoniasis will be treated with metronidazole here in the hospital Discharge Plan: Home Plan to discharge in: Greater than 2 days - Code Status/Comfort Care Code Status Assessed: Yes Critical Care: No
[2019-05-19] MEDS: metroNIDAZOLE 500 MG TABLET PO SCH ×2 (13:40→20:30)
[2019-05-19] MEDS: ONDANSETRON 4 MG/2 ML VIAL IV PRN (15:25)
--- NOTE | 2019-05-19 17:45 | RAD REPORT ---
EXAM DESCRIPTION: CT - Thorax Wo Con - 05/19/2019 5:05 pm CLINICAL HISTORY: Left lower lobe pulmonary embolic disease possible pulmonary hemorrhage COMPARISON: May 17 TECHNIQUE: Axial 5 mm thick images of the chest were obtained without IV contrast. All CT scans are performed using dose optimization technique as appropriate and may include automated exposure control or mA/KV adjustment according to patient size. FINDINGS: Right lung field is clear. Left upper lobe is clear. Moderate loculated pleural effusion h as developed. There is atelectasis of the left lower lobe. Hypodense area within the left lower lobe could be part of pulmonary hemorrhage. Overall volume of possible pulmonary hemorrhage has not change d substantially from May 17. The atelectasis and loculated pleural effusion are all new. No right -sided pleural effusion. No pneumothorax. No abnormal mediastinal or hilar masses or lymphadenopathy seen. No gross aortic or pulmonary artery finding suspected. Assessment is limited in the absence of IV contrast. No chest wall mass or abnormal axillary lymphadenopathy. IMPRESSION: Since the May 17 study, moderate loculated pleural effusion has developed on the lef t. Left lower lobe atelectasis is present. There is a possible area of hemorrhage within the anterior as pect of the collapsed left lower lobe. The volume of possible PE related pulmonary hemorrhage has no t clearly changed from May 17.
[2019-05-19] MEDS ORDERED: ACETAMINOPHEN 500 MG TAB PO ONE (20:16)
--- NOTE | 2019-05-19 20:37 | RAD REPORT ---
EXAM DESCRIPTION: US - Chest - 05/19/2019 8:29 pm CLINICAL HISTORY: Pleural effusion COMPARISON: CT chest May 19 FINDINGS: Limited ultrasound evaluation of the left chest was performed. No drainable fluid collection was identifiable. There is echogenic material in the lower chest. CT im aging showed loculated pleural effusions. Collective ultrasound and CT findings are suspicious for he mothorax as an etiology for the loculated pleural fluid collections. IMPRESSION: No free fluid or drainable fluid collection identifiable in the pleural space. Collective ultrasound and CT findings are concerning for hemothorax as a source for the loculated ple ural fluid seen on CT imaging.
[2019-05-19 21:14] LABS: RPR (Rapid Plasma Reagin) NON-REACT (NON-REACT)
[2019-05-19] MEDS ORDERED: FENTANYL CITR 100 MCG/2 ML IV ONE (22:18)
[2019-05-20] MEDS ORDERED: FENTANYL CITR 100 MCG/2 ML IV ONE (03:07)
[2019-05-20] MEDS ORDERED: CLINDAMYCIN INJ 600 MG in NA CHLORIDE 0.9% 50 ML IV SCH ×2 (03:20→08:00)
[2019-05-20 04:28] LABS: Protime INR 1.16
[2019-05-20 04:31] LABS: Absolute Lymphocytes (CBC) 0.9 K/uL (0.7-4.9); Basophils % 0.2 % (0-1.3); Hematocrit 27.3 % (36.0-45.0); Lymphocytes % 16.8 % (15.3-44.8); MPV 8.3 fL (7.6-11.3); RBC Red Blood Cell Count 3.09 M/uL (3.86-4.86)
[2019-05-20] MEDS ORDERED: CLINDAMYCIN IV 150 MG/ML (4 mL) VIAL ONE (05:12)
[2019-05-20] MEDS ORDERED: NA CHLORIDE 0.9% 50 ML ONE (05:50)
[2019-05-20] MEDS ORDERED: HEPARIN/D5W 25,000 UNIT/500 ML BAG IV SCH (06:00)
[2019-05-20] MEDS: CLINDAMYCIN INJ 600 MG in NA CHLORIDE 0.9% 50 ML IV SCH ×2 (06:16→17:33)
[2019-05-20] MEDS ORDERED: HEPARIN 10,000 UNIT/10 ML VIAL IV ONE (06:16)
[2019-05-20 06:24] VITALS: BMI 28.3
[2019-05-20] MEDS: HEPARIN/D5W 25,000 UNIT/500 ML BAG IV SCH ×2 (07:42→18:45)
[2019-05-20] MEDS: ONDANSETRON 4 MG/2 ML VIAL IV PRN ×3 (08:33→19:53)
[2019-05-20] MEDS: metroNIDAZOLE 500 MG TABLET PO SCH ×3 (09:07→19:53)
[2019-05-20] MEDS: MORPHINE 2 MG/ML SYR IV PRN ×5 (09:09→19:52)
[2019-05-20] MEDS: NICOTINE 14 MG/PAT TD SCH (10:29)
--- NOTE | 2019-05-20 11:07 | P.DS ---
Admission Date: 05/17/19 Discharge Date: 05/20/19 Reason for Admission: Pulmonary embolism Consultations: Pulmonology - Problems (1) Pulmonary embolism Current Visit: Yes Status: Acute Qualifiers: Pulmonary embolism type: other Chronicity: acute Acute cor pulmonale presence: without acute cor pulmonale Qualified Code(s): I26.99 - Other pulmonary embolism without acute cor pulmonale (2) Trichomoniasis Current Visit: Yes Status: Acute Brief History of Present Illness: Patient is a 33-year-old female came to the hospital with chest discomfort. Pain was mainly in the sternal region. Patient has history of tobacco use and also is taking control pills. She states the pain is been going on for the last 2-3 days and was getting progressively worse so she came into the ER. In the emergency room her workup revealed multiple pulmonary embolisms. The ER physician spoke with her balance screwhead polisher and the decision was made to admit patient to our hospital for further workup. Patient is having some pain on deep inspiration. Will try to regional hr manager with pain medication and start her on anti coagulation. Patient is given Lovenox in the ER. Will go ahead and give heparin drip in a.m.. Hospital Course: Overall during the hospital stay patient remained stable The patient was initially admitted to the hospital for respiratory distress was found to have bilateral multiple PEs with possible pulmonary hemorrhage of the left lower lobe as well. Patient was admitted to the hospital was started on anti coagulation. Initially patient was placed on IV heparin which was switched over to Lovenox per pulmonology is recommendations. Patient was closely monitored here in the hospital for next 24-48 hr. Patient did not have any improvement in her symptoms and continued to have pain in the left lower lung bases. At that time CT chest was repeated and was consistent pneumothorax and thus an ultrasound of the chest was also done. An ultrasound of the chest confirmed the pleural effusion secondary to hemothorax. At that time pulmonology recommended the patient be transferred to higher level of care for possible vats procedure and filter placement. Patient was transferred [facility] for further care after was accepted by a cardiothoracic surgeon. Vital Signs/Physical Exam: Temp Pulse Resp BP Pulse Ox 99.8 F 94 H 24 H 115/60 95 05/20/19 08:00 05/20/19 08:00 05/20/19 08:00 05/20/19 08:00 05/20/19 08:00 General: Alert, In no apparent distress HEENT: Atraumatic, PERRLA, EOMI Neck: Supple, JVD not distended Respiratory: Normal air movement, Expiratory wheezes, Inspiratory wheezes Cardiovascular: Regular rate/rhythm, Normal S1 S2 Gastrointestinal: Normal bowel sounds, No tenderness Musculoskeletal: No tenderness Integumentary: No rashes Neurological: Normal speech, Normal tone, Normal affect Lymphatics: No axilla or inguinal lymphadenopathy Laboratory Data at Discharge: WBC 5.1 K/uL (4.3-10.9) D 05/20/19 03:43 Hgb 9.4 g/dL (12.0-15.0) L 05/20/19 03:43 Hct 27.3 % (36.0-45.0) L D 05/20/19 03:43 Plt Count 188 K/uL (152-406) 05/20/19 03:43 PT 13.6 SECONDS (9.5-12.5) H 05/20/19 03:43 INR 1.16 05/20/19 03:43 APTT 28.0 SECONDS (24.3-36.9) 05/20/19 03:43 Sodium 137 mmol/L (136-145) 05/18/19 05:56 Potassium 3.4 mmol/L (3.5-5.1) L 05/18/19 05:56 BUN 7 mg/dL (7-18) 05/18/19 05:56 Creatinine 0.76 mg/dL (0.55-1.3) 05/18/19 05:56 Glucose 132 mg/dL (74-106) H 05/18/19 05:56 Magnesium 2.3 mg/dL (1.8-2.4) 05/17/19 15:55 Total Bilirubin 0.9 mg/dL (0.2-1.0) 05/18/19 05:56 AST 8 U/L (15-37) L 05/18/19 05:56 ALT 17 U/L (12-78) 05/18/19 05:56 Alkaline Phosphatase 70 U/L (45-117) 05/18/19 05:56 Troponin I < 0.02 ng/mL (0.0-0.045) 05/18/19 23:42 Home Medications: NK [No Home Meds] 05/17/19
--- NOTE | 2019-05-20 11:37 | P.PN ---
Subjective Date of Service: 05/20/19 Chief Complaint: Pulmonary embolism with pleural effusion No change patient is still complaining of significant MR discomfort on the left side chest x-ray CT scan shows worsening effusion possible loculation Review of Systems Respiratory: Shortness of Breath Cardiovascular: Chest Pain Physical Examination - Vital Signs Temperature: 99.8 F Blood Pressure: 115/60 Pulse: 94 Respirations: 24 Pulse Ox (%): 95 - Physical Exam General: Alert, Moderate distress Neck: Supple Respiratory: Diminished (Diminished) Cardiovascular: No edema ( air entry at the left base), Regular rate/rhythm, Normal S1 S2 - Studies Medications List Reviewed: Yes Assessment & Plan - Problems (Diagnosis) (1) Pulmonary embolism Current Visit: Yes Status: Acute Plan: Patient admitted with pulmonary embolism switch back to heparin Qualifiers: Pulmonary embolism type: other Chronicity: acute Acute cor pulmonale presence: without acute cor pulmonale Qualified Code(s): I26.99 - Other pulmonary embolism without acute cor pulmonale (2) Pleural effusion Current Visit: Yes Status: Acute Plan: Is been worsening upper chest x-ray she has significant amount of pain on the left side most likely hemorrhagic pleural effusion patient is currently on heparin as also been a slight decline in her hemoglobin scans reviewed ultrasound was consistent with pulmonary hemorrhage discussed with hospitalist recommend transfer to a tertiary care center patient will need a chest tube possible IVC filter and vats procedure vital signs stable discuss with the patient informed her father
[2019-05-20 12:17] LABS: Absolute Lymphocytes (CBC) 0.8 K/uL (0.7-4.9); Basophils % 0.4 % (0-1.3); Hematocrit 29.2 % (36.0-45.0); Lymphocytes % 12.8 % (15.3-44.8); MPV 8.6 fL (7.6-11.3); RBC Red Blood Cell Count 3.37 M/uL (3.86-4.86)
[2019-05-20] MEDS ORDERED: HEPARIN 5000 UNIT/ML 1 ML VIAL IV ONE (13:17)
[2019-05-20] MEDS: ACETAMINOPHEN 500 MG TAB PO PRN (15:27)
[2019-05-20] MEDS ORDERED: HEPARIN 5000 UNIT/ML 1 ML VIAL IV SCH (19:00)
[2019-05-20 20:12] VITALS: BP 121/63; TEMP 100.5
[2019-05-20 22:40] VITALS: O2SAT 100
[2019-05-21 13:25] LABS: Protein C Antigen 81 % (70-140)
[2019-05-22 13:43] LABS: Prothrombin Gene Analysis Test REPORT
[2019-05-23 05:38] LABS: Albumin, (SPE) 3.4 g/dL (3.8-4.8); Alpha-1-Globulins 0.6 g/dL (0.2-0.3); Alpha-2-Globulins 0.7 g/dL (0.5-0.9); Gamma Globulins 0.9 g/dL (0.8-1.7); INTERPRETATION REPORT
== END 2019-05-20 20:10 | disposition short-term general hospital (02) | DRG 175 ==
LOC: ER 15:44 → ERHOLD 20:58 → 4TH 21:47
PROVIDERS: ADMIT Hospitalist; ATTEND Family Medicine
DX: I26.99 Other pulmonary embolism without acute cor pulmonale (principal); J18.9 Pneumonia, unspecified organism; R04.89 Hemorrhage from other sites in respiratory passages; J94.2 Hemothorax; T50.995A Adverse effect of other drugs, medicaments and biological substances, initial encounter; F17.210 Nicotine dependence, cigarettes, uncomplicated; A59.9 Trichomoniasis, unspecified
CPT/HCPCS: 36415; 71045; 71250; 71275; 76604; 80048; 80053; 80076; 81003; 81015; 81240; 81241; 82306; 82607; 82746; 83090; 83605; 83735; 83880; 84165; 84484; 85025; 85300; 85302; 85305; 85306; 85379; 85610; 85730; 86021; 86592; 87040; 87070; 87086; 87088; 87205; 93005; 93970; 94760; 96372; 96374; 96375; 97116; 97161; 97530; 99285; J1170; J1644; J1650; J2270; J2405; J2543; J2550; J3010; J7030; Q9967; S0077